=== PATIENT | male | born 1950 | race Caucasian/White ===

== ENCOUNTER → 2021-07-08 | Outpatient (CLI) | payer MEDICARE ==
[~2021-07-08] MED LIST: ASPI81TA26 PO; BIMA01SOL OU; COMB0.2S OU; FENO160T10 PO; GLIP5TAB20 PO; LOSA50TA5 PO; METF10004 PO; PRAV80TA2 PO; SEMA7TAB2 PO; TRES100I SC
== END ==
LOC: M LABSMTC 10:48
PROVIDERS: ATTEND Anesthesiology
DX: Z01.818 Encounter for other preprocedural examination (principal); Z11.52 Encounter for screening for COVID-19

== ENCOUNTER 2021-07-12 08:52 | Emergency (ER) | payer MEDICARE ==
[~2021-07-12] VITALS: Ht 177.8 cm; Wt 92.3 kg
[~2021-07-12 08:52] MED LIST changes: -LIDOCAINE 2% 100MG/5ML SDV (FOR ANES.) As Ordered ONE; -NS 1,000 ML IV ONE; -fentaNYL 100 MCG/2 ML INJECTION As Ordered ONE; -propofoL 200 MG/20 ML VIAL As Ordered ONE
[2021-07-12 11:32] VITALS: BP 148/88
== END 2021-07-12 11:34 | disposition home or self-care (01) ==
LOC: M ED 08:52
DX: M79.604 Pain in right leg (principal); M79.605 Pain in left leg; E11.9 Type 2 diabetes mellitus without complications; I10 Essential (primary) hypertension; E78.5 Hyperlipidemia, unspecified; Z87.891 Personal history of nicotine dependence; Z79.84 Long term (current) use of oral hypoglycemic drugs; Z79.899 Other long term (current) drug therapy

== ENCOUNTER → 2021-07-12 | Day surgery (SDC) | payer MEDICARE ==
[~2021-07-12] VITALS: Ht 177.8 cm; Wt 94.8 kg
[~2021-07-12] MED LIST changes: +LIDOCAINE 2% 100MG/5ML SDV (FOR ANES.) As Ordered ONE; +NS 1,000 ML IV ONE; +fentaNYL 100 MCG/2 ML INJECTION As Ordered ONE; +propofoL 200 MG/20 ML VIAL As Ordered ONE
[2021-07-12 08:15] VITALS: BP 196/89
== END | disposition home or self-care (01) ==
LOC: M OPP 07:26
PROVIDERS: ATTEND Internal Medicine Gastroenterology
DX: R12 Heartburn (principal); Z53.8 Procedure and treatment not carried out for other reasons

== ENCOUNTER → 2023-01-06 | Outpatient (CLI) | payer MEDICARE | LOC: M PLAIMG 15:25 | PROVIDERS: ATTEND Physician Assistant Medical | DX: M25.551 Pain in right hip (principal); M16.11 Unilateral primary osteoarthritis, right hip; M70.61 Trochanteric bursitis, right hip; M76.01 Gluteal tendinitis, right hip ==

== ENCOUNTER → 2024-05-07 | Outpatient (REF) | payer MEDICARE ==
[~2024-05-07] MED LIST changes: +GLIP-318 PO; -GLIP5TAB20 PO
== END ==
LOC: M WUC 09:05 → EEVIPCON 09:05
PROVIDERS: ATTEND Physician Assistant
DX: R30.0 Dysuria (principal)